=== PATIENT | male | born 1930 | race Hispanic/Latino ===

== ENCOUNTER 2016-10-06 13:58 | Emergency (ER) | payer MEDICARE ==
[2016-10-06] MEDS ORDERED: Naloxone HCl 0.4 mg/ml Vial ONE (14:21)
[2016-10-06 14:36] LABS: #Basophils 0.1 thou/uL (0.0-0.2); #Eosinphils 0.1 thou/uL (0.0-0.7); #Monocytes 0.4 thou/uL (0.11-0.59); #Neutrophils 6.2 thou/uL (1.40-6.50); %Eosinophils 1.8 % (0.0-10.0); %Monocytes 4.8 % (0.0-10.0); Hematocrit 45.9 % (42.0-52.0); Mean Platelet Volume 7.9 fL (7.4-10.4); Red Blood Cell (RBC) Count 5.04 mill/uL (4.70-6.10); White Blood Cell (WBC) Count 7.7 thou/uL (4.8-10.8)
[2016-10-06 14:47] LABS: ALT (SGPT) 20 U/L (0-55); AST (SGOT) 24 U/L (5-34); Alkaline Phosphatase 71 U/L (40-150); Anion Gap 14 mmol/L (10-20); BUN (Urea Nitrogen) 20 mg/dL (8.4-25.7); Bilirubin, Total 1.1 mg/dL (0.2-1.2); CK (CPK) 206 U/L (30-200); Calc. Creatinine Clearance 0 mL/min (70-130); Calcium 9.3 mg/dL (7.8-10.44); Carbon Dioxide 36 mmol/L (23-31); Chloride 96 mmol/L (98-107); Estimated GFR-MDRD 65; Globulin 3.5 g/dL (2.4-3.5); Lipase 9 U/L (8-78); Protein, Total 7.8 g/dL (5.8-8.1); Troponin I 0.027 ng/mL (< 0.028)
[2016-10-06 14:48] LABS: Acetaminophen Less than 3.0 mcg/mL (10.0-30.0); Salicylate Less than 5.0 mg/dL (15.0-30.0)
[2016-10-06 14:50] LABS: Bilirubin Negative (Negative); Blood, Urine Negative (Negative); Glucose, Urine (Dipstick) Negative (Negative); Ketone, Urine Negative (Negative); Nitrite Negative (Negative); Protein, Urine (Dipstick) 30 mg/dL (Neg-Trace)
[2016-10-06 14:58] LABS: Bacteria/HPF Rare-Few HPF (None Seen); RBC/HPF 0-3 HPF (0-3); Squamous Epithelial 0-3 HPF (0-3); Transitional Epithelial 0-3 HPF (0-3); WBC/HPF None Seen HPF (0-3)
[2016-10-06 14:59] LABS: Methadone Not Detected (NotDetected); Methamphetamine Not Detected (NotDetected)
--- NOTE | 2016-10-06 16:22 | ERRECORD ---
[facility] EMERGENCY RECORD HPI MENTAL STATUS CHANGES CHIEF COMPLAINT: Patient presents for evaluation of mental status changes. (15:15 MBRI) HISTORIAN: History provided by patient's family, Son states that he awoke this am at around 0430 and was normal. He got dressed and went to the kitchen. Some time later he fell asleep on the couch and remained asleep until they woke him at around 1300. He was lethargic and with slurred speech and weak at that time. They noted that there were some meds on the kitchen table that had apparently been moved by him in the am. His son normally gives him his meds. And upon counting the pills there were 6 Zyprexa and 2 Zoloft missing from the bottles. They are suspicious that he may have taken these pills. (15:15 MBRI) LOCATION: Symptoms are generalized. (15:15 MBRI) QUALITY: Patient is, oriented to person, responsive to verbal stimuli, Ama coma score, Eye opening: (3) To speech, Verbal: (2) - Incomprehensible sounds, Motor: (6) - Obeys commands/Spontaneous, GCS Total: 11. (15:15 MBRI) SEVERITY: Maximum severity of symptoms severe, Currently symptoms are severe. (15:15 MBRI) TIME COURSE: Gradual onset of symptoms, 6, hours prior to arrival, There has been no change in the patient's symptoms over time. (15:15 MBRI) ASSOCIATED WITH: Associated symptoms reviewed, No associated chest pain, No associated decrease in oral intake, No associated drug use, No associated fever, No associated hyperglycemia, No associated hypoglycemia, Associated with medication use, No associated nausea, Associated with overdose, No associated seizures, No associated syncope, No associated trauma, No associated vomiting. (15:15 MBRI) EXACERBATED BY: Patient's condition exacerbated by nothing. (15:15 MBRI) RELIEVED BY: Patient's condition relieved by nothing. (15:15 MBRI) RISK FACTORS: CVA/TIA risk factors, Hypertension, Smoking, Prior CVA / TIA. (15:15 MBRI) E/M CAVEAT: Emergency room caveat invoked due to patient with mental status changes. (15:17 MBRI) ROS (15:20 MBRI) CONSTITUTIONAL: Historian denies chills, denies fever, reports lethargy, reports weakness. CARDIOVASCULAR: Historian denies chest pain, reports edema, denies orthopnea, denies paroxysmal nocturnal dyspnea, denies syncope. RESPIRATORY: Historian denies shortness of breath, denies stridor, denies wheezing. GI: Historian denies diarrhea, denies nausea, denies vomiting. GENITOURINARY MALE: Historian denies dysuria, denies hematuria, denies incontinence, denies urinary frequency, denies urine output changes, denies urinary retention. MUSCULOSKELETAL: Historian denies fall, denies injury. &a-1R&a+25V*p+0X*u3028C*c202B*c15G*c2P*p-0X&a-25V&a+1R Name: Tio Mensah : 1930 M85 MedRec: [id number] AcctNum: [id number] Prepared: SunOct 06, 2016 16:21 by Interface Page 1 of 5 pMD [facility] EMERGENCY RECORD SKIN: Historian denies cellulitis, denies induration, denies rash. NEUROLOGIC: Historian reports confusion, reports gait changes, reports lethargy, reports mental status changes, denies seizures, denies tremors, denies vertigo. HEMO/LYMPHATIC: Historian denies abnormal blood clotting. PSYCHIATRIC: Historian denies alcohol abuse, denies drug abuse, denies suicidal ideation. PAST MEDICAL HISTORY (14:11 ERUI) MEDICAL HISTORY: Notes: PT TAKES LASIX FOR RETAINING FLUIDS TO LOWER EXTREMITY. HX OF GALL STONES, Past medical history includes history of hypertension, Past medical history includes pulmonary disease, chronic obstructive pulmonary disease. Past medical history includes history of hypertension, Past medical history includes pulmonary disease, chronic obstructive pulmonary disease.10/06/16. MALE SURGICAL HISTORY: Patient has no surgical history. Patient has no surgical history. 10/06/16. PSYCHIATRIC HISTORY: No previous psychiatric history. SOCIAL HISTORY: Patient drinks socially, rarely, Patient is a former tobacco user, Patient quit smoking less than 10 years ago, Tobacco history notes: smoked 70 years. Patient drinks socially, rarely, Patient denies drug use, Patient is a former tobacco user, smoked cigarettes, Patient quit smoking less than 10 years ago.10/06/16. KNOWN ALLERGIES Penicillins: Source: Family CURRENT MEDICATIONS predniSONE: TABLET : Strength - 10 mg : ORAL Patient Dose: 1 tab(s) once a day. (14:06 ERUI) amLODIPine: TABLET : Strength - 5 mg : ORAL Patient Dose: 1 tab(s) Oral once a day. (14:07 ERUI) furosemide: TABLET : Strength - 40 mg : ORAL Patient Dose: 1 tab(s) Oral. (14:08 ERUI) atorvastatin: TABLET : Strength - 40 mg : ORAL Patient Dose: 1 tab(s) Oral once a day. (14:09 ERUI) albuterol: AEROSOL (GRAM) : Strength - 90 mcg : INHALATION Patient Dose: .083 mcg Nebulize 2 times a day. (14:10 ERUI) VITAL SIGNS VITAL SIGNS: BP: 139/79, Pulse: 70, Resp: 20, O2 sat: 100 on Room Air, Time: 10/06/2016 14:12. (14:12 ERUI) &a-1R&a+25V*p+0X*m8363F*c202B*c15G*c2P*p-0X&a-25V&a+1R Name: Tio Mensah : 1930 M85 MedRec: [id number] AcctNum: [id number] Prepared: SunOct 06, 2016 16:21 by Interface Page 2 of 5 pMD [facility] EMERGENCY RECORD BP: 164/66, Pulse: 59, Resp: 20, Pain: 0, O2 sat: 100 on Room Air, Time: 10/06/2016 14:42. (14:42 ERUI) Temp: 98.2 (Oral), Time: 10/06/2016 14:40. (14:40 LGIB) BP: 155/63, Pulse: 59, Resp: 20, Pain: 0, O2 sat: 99 on Room Air, Time: 10/06/2016 15:00. (15:00 ERUI) BP: 135/63, Pulse: 55, Resp: 20, Pain: 0, O2 sat: 99 on Room Air, Time: 10/06/2016 15:16. (15:16 ERUI) BP: 120/88, Pulse: 57, Resp: 20, Pain: 0, O2 sat: 99 on Room Air, Time: 10/06/2016 15:45. (15:45 ERUI) PHYSICAL EXAM (15:22 MBRI) CONSTITUTIONAL: Vital Signs Reviewed, Patient afebrile, Pulse, bradycardic, Blood pressure normal, Respiratory rate normal, Normal pulse oximetry, Patient appears pain free, Patient, lethargic, oriented to person, responsive to verbal stimuli, Nursing notes reviewed. HEAD: Head exam included findings of head atraumatic, normocephalic. EYES: Eye exam included findings of eyelids normal to inspection, Pupils equally round and reactive to light, Extraocular muscles not intact, unable to complete complete exam due to AMS., Conjunctiva normal, Sclera normal. ENT: Ear exam normal, Nose exam normal, Pharynx exam normal, Uvula exam normal, Mouth exam included findings of, mucous membranes tacky, no lesions, no lacerations, Tongue not elevated. NECK: Neck exam included findings of normal range of motion, Trachea midline, Atraumatic, no carotid bruits, no meningeal signs, no cervical adenopathy, no tenderness. RESPIRATORY CHEST: Respiratory exam included findings of no respiratory distress, Breath sounds clear, No wheezing, No rales, No rhonchi, Breath sounds not diminished, no tenderness. CARDIOVASCULAR: Cardiovascular exam included findings of, rate bradycardic, rhythm regular, Heart sounds normal, normal S1, normal S2, no murmurs, Carotids normal, Abdominal aorta normal, Pedal pulses normal, no pain above the umbilicus. ABDOMEN MALE: Abdominal exam included findings of abdomen nontender, no distension, no mass, no pulsatile masses, no peritoneal signs. GENITOURINARY MALE: Genitourinary exam included findings of penis normal, Testicles normal. BACK: Back exam included findings of normal inspection, no tenderness. UPPER EXTREMITY: Upper extremity exam included findings of inspection normal, Range of motion normal, Motor strength, 3/5 on the left, 3/5 on the right, Radial pulse normal, no cyanosis, no clubbing, no edema. LOWER EXTREMITY: Lower extremity exam included findings of inspection normal, Range of motion normal, Motor strength, &a-1R&a+25V*p+0X*b6344P*c202B*c15G*c2P*p-0X&a-25V&a+1R Name: Tio Mensah : 1930 M85 MedRec: [id number] AcctNum: [id number] Prepared: SunOct 06, 2016 16:21 by Interface Page 3 of 5 pMD [facility] EMERGENCY RECORD 3/5 on the left, 3/5 on the right, Sensation intact, Pedal pulse normal, no cyanosis, no clubbing, Edema present, to bilateral lower extremities, pitting, +2, no calf tenderness. NEURO: Neuro exam findings include patient oriented to, Speech, garbled, Gait abnormal, unable to ambulate, [place]is coma scale, Cranial nerves intact, Deep tendon reflexes normal, no focal sensory deficits, no nystagmus, no clonus, no asterixis. SKIN: Skin exam normal. EKG INTERPRETATION (14:50 MBRI) 12 LEAD EKG INTERPRETATION: 12 lead EKG interpreted by Emergency Department Physician at time of study, 12 lead EKG shows, sinus bradycardia, Rate (beats per minute): 56, with no ectopics, Conduction normal, ST segments normal, T waves normal, [place] normal. RADIOLOGYINTERPRETATION (15:03 MBRI) HEAD: Head CT negative, without contrast, no bleed, no mass, no acute changes. WHIZZER OPERATOR: Preliminary review of x-rays by, ED Physician, Preliminary review of CT scans by, Radiologist. MEDICATION ADMINISTRATION SUMMARY Drug Name: sodium chloride 0.9 % intravenous, Dose Ordered: 125 mL/hr, Route: IV Fluid Infusion, Status: Given, Time: 15:37 10/06/2016, Drug Name: sodium chloride 0.9 % intravenous, Dose Ordered: 250 mL, Route: IV Fluid Infusion, Status: Given, Time: 14:55 10/06/2016, Drug Name: nalOXone, Dose Ordered: 0.4 mg, Route: IV Push, Status: Given, Time: 14:22 10/06/2016, Detailed record available in Medication Service section. DOCTOR NOTES RE-EVALUATION: Routine re-evaluation, after administration of, narcan, The patient's condition is unchanged, No sig change in the pts mentation to med. Low suspicion to narcotic type OD. Also no meds in the house of a pain treatment type nature. (14:39 MBRI) TEXT: Pt with ams possibly due to medication ingestion of zyprexa and Zoloft. However, this was unwitnessed. Pt present with some somnolence and slurred speech at this time. He is able to follow some commands and responds to verbal and phys stimulation. CT shows no acute process but prior occipital infarct was noted. Pt response may be related to his zyprexa ingestion as the Zoloft has a wide range of safety and taking 2 pills would likely not cause any sig issues. Some of his findings or dehydration due to meds may be playing a role in his dry tacky saliva but this can also occur with neuroleptics given the anticholinegic response. No indications for NMS at this time without rigidity or fever. At this time my diff &a-1R&a+25V*p+0X*m6271J*c202B*c15G*c2P*p-0X&a-25V&a+1R Name: Tio Mensah : 1930 M85 MedRec: [id number] AcctNum: [id number] Prepared: SunOct 06, 2016 16:21 by Interface Page 4 of 5 pMD [facility] EMERGENCY RECORD would have to include CVA as possible cause. Due to this I rec sending to [facility] at the [facility] for further care and eval as specialty care may be necessary in the work-up. I have discussed this with DR Gay who accepts for care. Pt stable at this time for ground EMS. Plan discussed with family. (15:03 MBRI) PATIENT STATUS: Patient has stabilized since arrival to emergency department. 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 PRESCRIPTION No recorded prescriptions DISPOSITION PATIENT: Disposition Type: Transfer, Disposition: Transfer to [facility], Condition: Guarded. (15:12 MBRI) Patient left the department. (16:16 LGIB) Ferrell: ERUI=[facility], [place] LGIB=LEOBARDO Alexander Lauren MBRI=DO Hawkins Matthew &a-1R&a+25V*p+0X*f9446Q*c202B*c15G*c2P*p-0X&a-25V&a+1R Name: Tio Mensah : 1930 M85 MedRec: [id number] AcctNum: [id number] Prepared: SunOct 06, 2016 16:21 by Interface Page 5 of 5 pMD MTDD
--- NOTE | 2016-10-06 16:29 | PICIS ---
[facility] EMERGENCY RECORD TRIAGE (SunOct 06, 2016 14:04 ERUI) TRIAGE NOTES: per patients son, pt possibly took six zyprexa and 2 zolft. this between 4 and 6 am. pt has increase drowsy, and slurred speech per son. (SunOct 06, 2016 14:04 ERUI) PATIENT: NAME: Tio Mensah, AGE: 85, GENDER: male, : Sun 1930, TIME OF GREET: SunOct 06, 2016 13:59, PREFERRED LANGUAGE: Egyptian, ETHNICITY: or , ECODE BILLING MAP: [facility], SSN: [id number], Zip Code: [address], KG WEIGHT: 75.75, PHONE: , , , PERSON ID: [id number], PAYMENT: [place] [employer], PCP: sherri. (SunOct 06, 2016 14:04 ERUI) COMPLAINT: possible accidental overdose. (SunOct 06, 2016 14:04 ERUI) ADMISSION: URGENCY: 2 Emergent, ADMISSION SOURCE: Home, TRANSPORT: CAR, BED: TRIAGE. (SunOct 06, 2016 14:04 ERUI) ASSESSMENT: Assessment: PT BROUGHT IN VIA, WC, DROWSY, ATTEMPTS TO SPEAK, SLURRED, UNCOMPRHENSIBLE, SON AT BEDSIDE, PER SON PT WAS UA AT 430, ATE A DONUT, PATIENT WENT TO THE COUCH, AND TOOK A 5 HR NAP, WHEN GRANDAUGHTER WOKE PT UP AT 1330, PT DROWSY, THIGHT TONGUE AND SLURRED SPEECH. LAST SEEN NORMAL AT 2130. PER DAUGHTER , PT WAS UP AT 430, LOOKING AT A PICTURE, NONVERBAL., Symptoms began 430AM. (15:19 ERUI) IMMUNIZATIONS: Flu vaccine up to date, Tetanus immunization up to date, Pneumococcal vaccine up to date. (14:11 ERUI) SIRS SCORING: Heart Rate 55-109 (0), Temp range 96.8-101.1 (0), respiratory rate 12-24 (0), Mental status altered: yes (1). (14:11 ERUI) TRIAGE SCREENING: Patient denies suicidal ideation, Patient denies presence of domestic violence. (14:11 ERUI) TREATMENTS IN PROGRESS: Treatments given Prehospital: none. (14:11 ERUI) PROVIDERS: TRIAGE NURSE: Queenie St RN. (SunOct 06, 2016 14:04 ERUI) PREVIOUS VISIT ALLERGIES: Penicillins. (SunOct 06, 2016 14:04 ERUI) Penicillins. (14:11 ERUI) KNOWN ALLERGIES Penicillins: Source: Family CURRENT MEDICATIONS predniSONE: TABLET : Strength - 10 mg : ORAL Patient Dose: 1 tab(s) once a day. (14:06 ERUI) amLODIPine: TABLET : Strength - 5 mg : ORAL Patient Dose: 1 tab(s) Oral once a day. (14:07 ERUI) furosemide: TABLET : Strength - 40 mg : ORAL Patient Dose: 1 tab(s) Oral. (14:08 ERUI) &a-1R&a+25V*p+0X*l0315A*c202B*c15G*c2P*p-0X&a-25V&a+1R Name: Tio Mensah : 1930 M85 MedRec: [id number] AcctNum: [id number] Prepared: SunOct 06, 2016 16:27 by Interface Page 1 of 18 pMD [facility] EMERGENCY RECORD atorvastatin: TABLET : Strength - 40 mg : ORAL Patient Dose: 1 tab(s) Oral once a day. (14:09 ERUI) albuterol: AEROSOL (GRAM) : Strength - 90 mcg : INHALATION Patient Dose: .083 mcg Nebulize 2 times a day. (14:10 ERUI) VITAL SIGNS VITAL SIGNS: BP: 139/79, Pulse: 70, Resp: 20, O2 sat: 100 on Room Air, Time: 10/06/2016 14:12. (14:12 ERUI) BP: 164/66, Pulse: 59, Resp: 20, Pain: 0, O2 sat: 100 on Room Air, Time: 10/06/2016 14:42. (14:42 ERUI) Temp: 98.2 (Oral), Time: 10/06/2016 14:40. (14:40 LGIB) BP: 155/63, Pulse: 59, Resp: 20, Pain: 0, O2 sat: 99 on Room Air, Time: 10/06/2016 15:00. (15:00 ERUI) BP: 135/63, Pulse: 55, Resp: 20, Pain: 0, O2 sat: 99 on Room Air, Time: 10/06/2016 15:16. (15:16 ERUI) BP: 120/88, Pulse: 57, Resp: 20, Pain: 0, O2 sat: 99 on Room Air, Time: 10/06/2016 15:45. (15:45 ERUI) NURSING ASSESSMENT: DYSPHAGIA SCREENING (16:15 ERUI) SWALLOWING EVALUATION: Positive for decrease level of alertness, Patient not cleared for swallowing evaluation; positive responses, Swallowing evaluation approved by Dr. DR HAWKINS, Following administration of 3 ounces of water by a cup, patient failed swallowing evaluation by exhibiting the following signs or symptoms of aspiration:. NURSING ASSESSMENT: FALL RISK (14:45 ERUI) FALL RISK: Use of level of consciousness altering agents with mentation or cognitive changes (3), Impaired mobility (3), Confusion (3), Total score 9, Fall risk. HENDRICH II FALL RISK: Hendrich II Fall Risk assessment findings include patient confused, disoriented or impulsive(4), altered elimination(1), male(1), Total score 6, Notes: SIDE RAILS UP AND SON AT BEDSIDE, VIEW FROM NS STATION, Score greater than 5. Patient is at high risk for fall. Fall risk precautions initiated. NURSING ASSESSMENT: FOCUSED (14:47 ERUI) CONSTITUTIONAL: Patient arrives, via hospital wheelchair, Unsteady gait, Assistance to cart, History obtained from, family member: FREEMAN, PATIENTS SON, Patient appears comfortable, Patient cooperative, Patient, DROWSY, Patient is, NO VERBAL, PT ATTEMPTS TO SPEAK, SLURRED, UNCOMPREHENSIBLE, Skin warm, Skin dry, Skin normal in color, Mucous membranes pink, Mucous membranes moist, Patient is well-groomed, Patient complains of ALERTED MENTAL STATUS, PER SON, PATIENT POSSIBLE ACCIDENTLY TOOK 2 OF ZOLFT AND 6 ZYPREXA. &a-1R&a+25V*p+0X*z5540B*c202B*c15G*c2P*p-0X&a-25V&a+1R Name: Tio Mensah : 1930 M85 MedRec: [id number] AcctNum: [id number] Prepared: SunOct 06, 2016 16:27 by Interface Page 2 of 18 pMD [facility] EMERGENCY RECORD PAIN: Patient is unable to relate pain to scale. EYES: Focused eye assessment finding include pupils equally round and reactive to light, Left pupil 4 mm in size, Right pupil 4 mm in size. NEURO: Focused neuro assessment findings include patient responsive to verbal stimuli, cooperative, No facial droop noted, Speech incoherent, No loss of consciousness. GCS: Eye opening: (3) To speech, Verbal: (2) - Incomprehensible sounds, Motor: (6) - Obeys commands/Spontaneous, GCS Total: 11. RESPIRATORY: Focused respiratory assessment findings include breath sounds not clear, to bilateral lower lobes, Breath sounds with rhonchi. ABDOMEN: Focused abdominal assessment findings include abdomen soft, no constipation, no diarrhea, no complaint of nausea, no vomiting, Bowel sounds present. GENITOURINARY: Focused genitourinary assessment not applicable. SAFETY: Side rails up, Cart/Stretcher in lowest position, Family at bedside, Call light within reach, Hospital ID band on, Patient in view of the nursing station. NURSING ASSESSMENT: NEURO GCS: (6) Obeying command:, (2) Incomprehensible speech:, (1) No eye opening:, Result: 9. (16:06 ERUI) NIHSS: CVA assessment findings: Level of consciousness : not alert, but arousable by minor stimulation (1), Questions: answers neither question correctly (2), Commands: performs both tasks correctly (0), Best gaze: forced deviation or total gaze paresis (2), Visual: complete hemianopia (2), Facial palsy: normal symmetrical movement (0), Motor Left Arm: no drift, arm stays 90/45 degrees for full 10 seconds (0), Motor Right Arm: no drift, arm stays 90/45 degrees for full 10 seconds (0), Motor left leg: drift, leg drifts down but does not hit bed or other support (1), Motor right leg: drift, leg drifts down but does not hit bed or other support (1), Limb ataxia: present in two limbs (2), Sensory: normal, no sensory loss (0), Best language: severe aphasia: all communication is through fragmentary expression: great need for inference, questioning, and guessing by the listener. Range of information that can be exchanged is limited: listener carries burden of communication. Examiner cannot identify materials provided from patient's response (2), Dysarthria: severe: patient's speech is so slurred as to be unintelligible in the absence of or out of proportion to any dysphasia, or is mute/anarthric (2), Extinction and Inattention: visual, tactile, auditory, spatial or personal inattention or extinction to bilateral simultaneous simulation in one of the sensory modalities (1), Total score 16. (15:03 ERUI) CVA assessment findings: Level of consciousness: alert, keenly responsive (0), Questions: answers neither question correctly (2), &a-1R&a+25V*p+0X*g2933I*c202B*c15G*c2P*p-0X&a-25V&a+1R Name: Tio Mensah : 1930 M85 MedRec: [id number] AcctNum: [id number] Prepared: SunOct 06, 2016 16:27 by Interface Page 3 of 18 pMD [facility] EMERGENCY RECORD Commands: performs both tasks correctly (0), Best gaze: forced deviation or total gaze paresis (2), Visual: partial hemianopia (1), Facial palsy: normal symmetrical movement (0), Motor Left Arm: no drift, arm stays 90/45 degrees for full 10 seconds (0), Motor Right Arm: no drift, arm stays 90/45 degrees for full 10 seconds (0), Motor left leg: some effort against gravity, drifts down to bed or support (2), Motor right leg: some effort against gravity, drifts down to bed or support (2), Limb ataxia: present in one limb (1), Sensory: normal, no sensory loss (0), Best language: severe aphasia: all communication is through fragmentary expression: great need for inference, questioning, and guessing by the listener. Range of information that can be exchanged is limited: listener carries burden of communication. Examiner cannot identify materials provided from patient's response (2), Dysarthria: severe: patient's speech is so slurred as to be unintelligible in the absence of or out of proportion to any dysphasia, or is mute/anarthric (2), Extinction and Inattention: visual, tactile, auditory, spatial or personal inattention or extinction to bilateral simultaneous simulation in one of the sensory modalities (1), Total score 15. (16:06 ERUI) PAIN: Patient rates pain as 0 out of 10. (16:06 ERUI) NEURO: Pupils equally round and reactive to light, Left pupil 4 mm in size, Right pupil 4 mm in size, Able to close eyes, Face symmetrical, Speech, incoherent, no facial droop, no facial numbness, no swelling, no paresthesias, Hand grasps equal, Upper extremity strength strong, Lower extremity strength strong, Foot press equal, no associated syncopal episode, no associated vomiting. (15:03 ERUI) Pupils equally round and reactive to light, Left pupil 3 mm in size, Right pupil 3 mm in size, Able to close eyes, Face symmetrical, Speech, garbled, no facial droop, no facial numbness, no swelling, no paresthesias, GCS:, Eye opening: (4) - Spontaneous, Verbal: (2) - Incomprehensible sounds, Motor: (6) - Obeys commands/Spontaneous, GCS Total: 12, Upper extremity strength strong, Lower extremity strength strong, Foot press equal, no associated vomiting, no associated weakness. (16:06 ERUI) ENT: Ear assessment findings include ear normal to inspection. (16:06 ERUI) SAFETY: Side rails up, Cart/Stretcher in lowest position, Family at bedside, Call light within reach, Hospital ID band on. (15:03 ERUI) Side rails up, Cart/Stretcher in lowest position, Family at bedside, Call light within reach, Hospital ID band on. (16:06 ERUI) NURSING ASSESSMENT: SKIN (14:45 ERUI) SKIN: Skin assessment findings include skin warm, Skin dry, Skin normal in color, Notes: NO SKIN BREAKDOWN. SAFETY: Side rails up, Cart/Stretcher in lowest position, Family &a-1R&a+25V*p+0X*y2489H*c202B*c15G*c2P*p-0X&a-25V&a+1R Name: Tio Mensah : 1930 M85 MedRec: [id number] AcctNum: [id number] Prepared: SunOct 06, 2016 16:27 by Interface Page 4 of 18 pMD [facility] EMERGENCY RECORD at bedside, Call light within reach, Hospital ID band on. NURSING PROCEDURE: BEDSIDE SIRS TESTING (16:05 ERUI) SCORES: Heart Rate 55-109 (0), Temp range 96.8-101.1 (0), respiratory rate 12-24 (0), Latest WBC 3-14.9 (0), Mental status altered: yes (1). NURSING PROCEDURE: BEDSIDE TESTING (14:05 ERUI) GLUCOSE: Glucose testing indicated for mental status changes, Capillary blood sample, Result (mg/dl) 108. SAFETY: Side rails up, Cart/Stretcher in lowest position, Family at bedside, Call light within reach, Hospital ID band on. NURSING PROCEDURE: RAILROAD OPERATOR (14:05 ERUI) PATIENT IDENTIFIER: Patient actively involved in identification process, Patient's identity verified by hospital ID bracelet, Patient's identity verified by family member. RAILROAD OPERATOR: Cardiac monitoring indicated for mental status changes, Patient placed on nuclear monitoring technician, Heart rate: 60, showing sinus bradycardia, Patient placed on non-invasive blood pressure monitor, with disposable blood pressure cuff applied, Patient placed on continuous pulse oximetry, Adult/pediatric oxisensor applied. NURSING PROCEDURE: EKG CHART (14:26 ERUI) PATIENT IDENTIFIER: Patient actively involved in identification process, Patient's identity verified by hospital ID bracelet, Patient's identity verified by family member. EKG: EKG indicated for AMS, 12 lead EKG performed on the left chest, done by PERLITA. FOLLOW-UP: After procedure, EKG for interpretation given to Dr. HAWKINS. SAFETY: Side rails up, Cart/Stretcher in lowest position, Family at bedside, Call light within reach, Hospital ID band on. NURSING PROCEDURE: IV (14:10 LGIB) IV SITE 1: IV therapy indicated for medication administration, IV established, to the right antecubital, using an 18 gauge catheter, in one attempt, Saline lock established, Flushed with normal saline (mls): 10, Labs drawn at time of placement, labeled in the presence of the patient and sent to lab, Blood cultures drawn at time of placement, labeled in the presence of the patient and sent to lab. NURSING PROCEDURE: NURSE NOTES NURSES NOTES: Notes: ems at bedside. (16:02 ERUI) Notes: pt transported to [facility]. (16:11 ERUI) Notes: REPORT TO YOVANI AT [facility]. (16:15 ERUI) NURSING PROCEDURE: TRANSPORT TO TESTS (14:44 ERUI) PATIENT IDENTIFIER: Patient actively involved in identification &a-1R&a+25V*p+0X*o0448J*c202B*c15G*c2P*p-0X&a-25V&a+1R Name: Tio Mensah : 1930 M85 MedRec: [id number] AcctNum: [id number] Prepared: SunOct 06, 2016 16:27 by Interface Page 5 of 18 pMD [facility] EMERGENCY RECORD process, Patient's identity verified by hospital ID bracelet, Patient's identity verified by family member. TRANSPORT TO TESTS: Patient transported to CT scan, via cart, Accompanied by x-ray vascular technician. NURSING PROCEDURE: URINE COLLECTION (14:10 LGIB) URINE COLLECTION MALE: Urine collected by straight cath, using a 14 fr catheter, in one attempt, output amount (mL) 180, urine yellow in color, and clear, Specimen collected, labeled in the presence of the patient and sent to lab, Specimen obtained for culture labeled in the presence of the patient and sent to lab. ORDER DETAILS Order Name: Accucheck, Status: Done, Time: 14:39 10/06/2016, User: MULU, - Ordered for: DO Hawkins Matthew, - Entered by: DO Hawkins Matthew - SunOct 06, 2016 14:19, - Quantity: 1, Order Name: RAILROAD OPERATOR ED, Status: Done, Time: 15:36 10/06/2016, User: LGIB, - Ordered for: DO Hawkins Matthew, - Entered by: DO Hawkins Matthew - SunOct 06, 2016 15:32, - Quantity: 1, Order Name: Cardiac Profile w/CKMB & Troponin - I, Status: Active, Time: 14:19 10/06/2016, User: MBRI, - Ordered for: DO Hawkins Matthew, - Entered by: DO Hawkins Matthew - SunOct 06, 2016 14:19, - Quantity: 1, Order Name: CATH STRAIGHT ED, Status: Done, Time: 14:31 10/06/2016, User: MULU, - Ordered for: DO Hawkins Matthew, - Entered by: DO Hawkins Matthew - SunOct 06, 2016 14:19, - Quantity: 1, Order Name: CBC with Differential, Status: Active, Time: 14:19 10/06/2016, User: EDINSON, - Ordered for: DO Hawkins Matthew, - Entered by: DO Hawkins Matthew - SunOct 06, 2016 14:19, - Quantity: 1, Order Name: CK (CPK), Status: Active, Time: 14:19 10/06/2016, User: EDINSON, - Ordered for: DO Hawkins Matthew, - Entered by: DO Hawkins Matthew - SunOct 06, 2016 14:19, - Quantity: 1, Order Name: Comprehensive Metabolic Panel, Status: Active, Time: 14:19 10/06/2016, User: EDINSON, - Ordered for: DO Hawkins Matthew, - Entered by: DO Hawkins Matthew - SunOct 06, 2016 14:19, - Quantity: 1, Order Name: CT Brain WO Con, Status: Active, Time: 14:19 10/06/2016, &a-1R&a+25V*p+0X*y0180K*c202B*c15G*c2P*p-0X&a-25V&a+1R Name: Tio Mensah : 1930 M85 MedRec: [id number] AcctNum: [id number] Prepared: SunOct 06, 2016 16:27 by Interface Page 6 of 18 pMD [facility] EMERGENCY RECORD User: EDINSON, - Ordered for: DO Hawkins Matthew, - Entered by: DO Hawkins Matthew - SunOct 06, 2016 14:19, - Quantity: 1, Order Name: Culture, Blood, Status: Active, Time: 14:19 10/06/2016, User: EDINSON, - Ordered for: DO Hawkins Matthew, - Entered by: DO Ross Andrea - SunOct 06, 2016 14:19, - Quantity: 1, Order Name: Culture, Urine, Status: Active, Time: 14:19 10/06/2016, User: MBRI, - Ordered for: [place], DO, Andrea, - Entered by: DO Ross Andrea - SunOct 06, 2016 14:19, - Quantity: 1, Order Name: Diet: Nothing by Mouth (NPO), Status: Done, Time: 14:30 10/06/2016, User: ERUI, - Ordered for: Ross, DO, Andrea, - Entered by: [place], DO Andrea - SunOct 06, 2016 14:19, - Quantity: 1, Order Name: Drug Screen, Serum, Status: Active, Time: 14:19 10/06/2016, User: MBRI, - Ordered for: [place], DO, Andrea, - Entered by: DO Ross Andrea - SunOct 06, 2016 14:19, - Quantity: 1, Order Name: Drug Screen, Urine, Status: Active, Time: 14:19 10/06/2016, User: MBRI, - Ordered for: Ross, DO, Andrea, - Entered by: DO Ross Andrea - SunOct 06, 2016 14:19, - Quantity: 1, Order Name: DYSPHAGIA SCREEN, Status: Done, Time: 16:05 10/06/2016, User: LGIB, - Ordered for: [place], DO, Andrea, - Entered by: DO Ross Andrea - SunOct 06, 2016 15:32, - Quantity: 1, Order Name: EKG 12 Lead in Emergency Room, Status: Active, Time: 14:19 10/06/2016, User: MBRI, - Ordered for: [place], DO, Andrea, - Entered by: DO Ross Andrea - SunOct 06, 2016 14:19, - Quantity: 1, Order Name: ERRT Pulse Oximeter ER, Status: Active, Time: 14:19 10/06/2016, User: MBRI, - Ordered for: [place], DO, Andrea, - Entered by: DO Ross Andrea - SunOct 06, 2016 14:19, - Quantity: 1, Order Name: HOB 30 DEGREES, Status: Done, Time: 15:36 10/06/2016, User: LGIB, - Ordered for: DO Hawkins Matthew, - Entered by: DO Hawkins Matthew - SunOct 06, 2016 15:32, - Quantity: 1, Order Name: Lipase, Status: Active, Time: 14:19 10/06/2016, User: MBRI, &a-1R&a+25V*p+0X*m0243E*c202B*c15G*c2P*p-0X&a-25V&a+1R Name: Tio Menash : 1930 M85 MedRec: [id number] AcctNum: [id number] Prepared: SunOct 06, 2016 16:27 by Interface Page 7 of 18 pMD [facility] EMERGENCY RECORD - Ordered for: DO Hawkins Matthew, - Entered by: DO Hawkins Matthew - SunOct 06, 2016 14:19, - Quantity: 1, Order Name: NIHSS, Status: Done, Time: 15:22 10/06/2016, User: LGIB, - Ordered for: DO Hawkins Matthew, - Entered by: DO Hawkins Matthew - SunOct 06, 2016 14:19, - Quantity: 1, Order Name: SALINE LOCK, Status: Done, Time: 14:30 10/06/2016, User: ERUI, - Ordered for: DO Hawkins Matthew, - Entered by: DO Hawkins Matthew - SunOct 06, 2016 14:19, - Quantity: 1, Order Name: Urinalysis w/ Rflx Microscopic, Status: Active, Time: 14:19 10/06/2016, User: MBRI, - Ordered for: DO Hawkins Matthew, - Entered by: DO Hawkins Matthew - SunOct 06, 2016 14:19, - Quantity: 1, Order Name: XR Chest 1 View Portable, Status: Active, Time: 14:19 10/06/2016, User: MBRI, - Ordered for: DO Hawkins Matthew, - Entered by: DO Hawkins Matthew - SunOct 06, 2016 14:19, - Quantity: 1. MEDICATION ADMINISTRATION SUMMARY Drug Name: sodium chloride 0.9 % intravenous, Dose Ordered: 125 mL/hr, Route: IV Fluid Infusion, Status: Given, Time: 15:37 10/06/2016, Drug Name: sodium chloride 0.9 % intravenous, Dose Ordered: 250 mL, Route: IV Fluid Infusion, Status: Given, Time: 14:55 10/06/2016, Drug Name: nalOXone, Dose Ordered: 0.4 mg, Route: IV Push, Status: Given, Time: 14:22 10/06/2016, Detailed record available in Medication Service section. MEDICATION SERVICE nalOXone: Order: nalOXone (naloxone HCl) - Dose: 0.4 mg : IV Push Schedule: Now Ordered by: Andrea Hawkins DO Entered by: Andrea Hawkins DO SunOct 06, 2016 14:20 Documented as given by: Katelyn Alexander RN SunOct 06, 2016 14:22 Patient, Medication, Dose, Route and Time verified prior to administration. IV SITE #1 IVP, initial medication, Catheter placement confirmed via flush prior to administration, IV site without signs or symptoms of infiltration during medication administration, No swelling during administration, No drainage during administration, IV flushed after administration, Correct patient, time, route, dose and medication confirmed prior to administration, Patient advised of actions and side-effects prior to administration, Allergies confirmed and medications reviewed prior to administration, Patient in position of &a-1R&a+25V*p+0X*t7478N*c202B*c15G*c2P*p-0X&a-25V&a+1R Name: Tio Mensah : 1930 M85 MedRec: [id number] AcctNum: [id number] Prepared: SunOct 06, 2016 16:27 by Interface Page 8 of 18 pMD [facility] EMERGENCY RECORD comfort, Side rails up, Cart in lowest position, Family at bedside. : Follow Up : Response assessment performed, No signs or symptoms of allergic reaction noted, No change in mental status, _IV SITE #1:_. (14:51 LGIB) sodium chloride 0.9 % intravenous: Order: sodium chloride 0.9 % intravenous (0.9 % sodium chloride) - Dose: 250 mL : IV Fluid Infusion Schedule: Bolus Ordered by: Andrea Hawkins DO Entered by: Andrea Hawkins DO SunOct 06, 2016 14:20 , Acknowledged by: Katelyn Alexander RN SunOct 06, 2016 14:42 Documented as given by: Katelyn Alexander RN SunOct 06, 2016 14:55 Patient, Medication, Dose, Route and Time verified prior to administration. IV SITE #1 IV fluids established for hydration, IV SITE #1 into right antecubital, IV SITE #1 1st bag hung, amount 250ml hung, via primary tubing, Catheter placement confirmed via flush prior to administration, IV site without signs or symptoms of infiltration during medication administration, No swelling during administration, No drainage during administration, IV flushed after administration, Correct patient, time, route, dose and medication confirmed prior to administration, Patient advised of actions and side-effects prior to administration, Allergies confirmed and medications reviewed prior to administration, Patient in position of comfort, Side rails up, Cart in lowest position, Family at bedside. : Follow Up : Response assessment performed, No signs or symptoms of allergic reaction noted, _IV SITE #1:_, IV fluid infusion discontinued, on SunOct 06, 2016 15:15, 20 minutes, ., Total amount infused: 250ml. (15:15 LGIB) sodium chloride 0.9 % intravenous: Order: sodium chloride 0.9 % intravenous (0.9 % sodium chloride) - Dose: 125 mL/hr : IV Fluid Infusion Schedule: Now Ordered by: Andrea Hawkins DO Entered by: Andrea Hawkins DO SunOct 06, 2016 15:30 , Acknowledged by: Queenie St RN SunOct 06, 2016 15:32 Documented as given by: Queenie St RN SunOct 06, 2016 15:37 Patient, Medication, Dose, Route and Time verified prior to administration. Amount given: 125ml/hr, IV SITE #1 IV fluids established for hydration, IV SITE #1 2nd bag hung, amount 1 Liter hung, via primary tubing, via pump tubing, Catheter placement confirmed via flush prior to administration, IV site without signs or symptoms of infiltration during medication administration, No swelling during administration, No drainage during administration, IV flushed after administration, Correct patient, time, route, dose and medication confirmed prior to administration, Patient advised of actions and side-effects prior to administration, Allergies confirmed and medications reviewed prior to administration, Patient in position of comfort, Side rails up, Cart in lowest position, Family at bedside. &a-1R&a+25V*p+0X*z3520J*c202B*c15G*c2P*p-0X&a-25V&a+1R Name: Tio Mensah : 1930 M85 MedRec: [id number] AcctNum: [id number] Prepared: SunOct 06, 2016 16:27 by Interface Page 9 of 18 pMD [facility] EMERGENCY RECORD : Follow Up : No signs or symptoms of allergic reaction noted, _IV SITE #1:_, Medication infusion continued upon transfer from emergency department, on SunOct 06, 2016 16:16, 40 minutes, ., Total amount infused: 100ML, Advised not to ambulate without assistance, Patient in position of comfort, Side rails up, Cart in lowest position, Family at bedside, Response assessment performed, . (16:19 ERUI) HPI MENTAL STATUS CHANGES CHIEF COMPLAINT: Patient presents for evaluation of mental status changes. (15:15 MBRI) HISTORIAN: History provided by patient's family, Son states that he awoke this am at around 0430 and was normal. He got dressed and went to the kitchen. Some time later he fell asleep on the couch and remained asleep until they woke him at around 1300. He was lethargic and with slurred speech and weak at that time. They noted that there were some meds on the kitchen table that had apparently been moved by him in the am. His son normally gives him his meds. And upon counting the pills there were 6 Zyprexa and 2 Zoloft missing from the bottles. They are suspicious that he may have taken these pills. (15:15 MBRI) LOCATION: Symptoms are generalized. (15:15 MBRI) QUALITY: Patient is, oriented to person, responsive to verbal stimuli, Ama coma score, Eye opening: (3) To speech, Verbal: (2) - Incomprehensible sounds, Motor: (6) - Obeys commands/Spontaneous, GCS Total: 11. (15:15 MBRI) SEVERITY: Maximum severity of symptoms severe, Currently symptoms are severe. (15:15 MBRI) TIME COURSE: Gradual onset of symptoms, 6, hours prior to arrival, There has been no change in the patient's symptoms over time. (15:15 MBRI) ASSOCIATED WITH: Associated symptoms reviewed, No associated chest pain, No associated decrease in oral intake, No associated drug use, No associated fever, No associated hyperglycemia, No associated hypoglycemia, Associated with medication use, No associated nausea, Associated with overdose, No associated seizures, No associated syncope, No associated trauma, No associated vomiting. (15:15 MBRI) EXACERBATED BY: Patient's condition exacerbated by nothing. (15:15 MBRI) RELIEVED BY: Patient's condition relieved by nothing. (15:15 MBRI) RISK FACTORS: CVA/TIA risk factors, Hypertension, Smoking, Prior CVA / TIA. (15:15 MBRI) E/M CAVEAT: Emergency room caveat invoked due to patient with mental status changes. (15:17 MBRI) ROS (15:20 MBRI) CONSTITUTIONAL: Historian denies chills, denies fever, reports lethargy, reports weakness. CARDIOVASCULAR: Historian denies chest pain, reports edema, denies orthopnea, denies paroxysmal nocturnal dyspnea, &a-1R&a+25V*p+0X*t2054G*c202B*c15G*c2P*p-0X&a-25V&a+1R Name: Tio Mensah : 1930 M85 MedRec: [id number] AcctNum: [id number] Prepared: SunOct 06, 2016 16:27 by Interface Page 10 of 18 pMD [facility] EMERGENCY RECORD denies syncope. RESPIRATORY: Historian denies shortness of breath, denies stridor, denies wheezing. GI: Historian denies diarrhea, denies nausea, denies vomiting. GENITOURINARY MALE: Historian denies dysuria, denies hematuria, denies incontinence, denies urinary frequency, denies urine output changes, denies urinary retention. MUSCULOSKELETAL: Historian denies fall, denies injury. SKIN: Historian denies cellulitis, denies induration, denies rash. NEUROLOGIC: Historian reports confusion, reports gait changes, reports lethargy, reports mental status changes, denies seizures, denies tremors, denies vertigo. HEMO/LYMPHATIC: Historian denies abnormal blood clotting. PSYCHIATRIC: Historian denies alcohol abuse, denies drug abuse, denies suicidal ideation. PAST MEDICAL HISTORY (14:11 ERUI) MEDICAL HISTORY: Notes: PT TAKES LASIX FOR RETAINING FLUIDS TO LOWER EXTREMITY. HX OF GALL STONES, Past medical history includes history of hypertension, Past medical history includes pulmonary disease, chronic obstructive pulmonary disease. Past medical history includes history of hypertension, Past medical history includes pulmonary disease, chronic obstructive pulmonary disease.10/06/16. MALE SURGICAL HISTORY: Patient has no surgical history. Patient has no surgical history. 10/06/16. PSYCHIATRIC HISTORY: No previous psychiatric history. SOCIAL HISTORY: Patient drinks socially, rarely, Patient is a former tobacco user, Patient quit smoking less than 10 years ago, Tobacco history notes: smoked 70 years. Patient drinks socially, rarely, Patient denies drug use, Patient is a former tobacco user, smoked cigarettes, Patient quit smoking less than 10 years ago.10/06/16. PHYSICAL EXAM (15:22 MBRI) CONSTITUTIONAL: Vital Signs Reviewed, Patient afebrile, Pulse, bradycardic, Blood pressure normal, Respiratory rate normal, Normal pulse oximetry, Patient appears pain free, Patient, lethargic, oriented to person, responsive to verbal stimuli, Nursing notes reviewed. HEAD: Head exam included findings of head atraumatic, normocephalic. EYES: Eye exam included findings of eyelids normal to inspection, Pupils equally round and reactive to light, Extraocular muscles not intact, unable to complete complete exam due to AMS., Conjunctiva normal, Sclera normal. ENT: Ear exam normal, Nose exam normal, Pharynx exam normal, Uvula exam normal, Mouth exam included findings of, mucous &a-1R&a+25V*p+0X*f9362D*c202B*c15G*c2P*p-0X&a-25V&a+1R Name: Tio Mensah : 1930 M85 MedRec: [id number] AcctNum: [id number] Prepared: SunOct 06, 2016 16:27 by Interface Page 11 of 18 pMD [facility] EMERGENCY RECORD membranes tacky, no lesions, no lacerations, Tongue not elevated. NECK: Neck exam included findings of normal range of motion, Trachea midline, Atraumatic, no carotid bruits, no meningeal signs, no cervical adenopathy, no tenderness. RESPIRATORY CHEST: Respiratory exam included findings of no respiratory distress, Breath sounds clear, No wheezing, No rales, No rhonchi, Breath sounds not diminished, no tenderness. CARDIOVASCULAR: Cardiovascular exam included findings of, rate bradycardic, rhythm regular, Heart sounds normal, normal S1, normal S2, no murmurs, Carotids normal, Abdominal aorta normal, Pedal pulses normal, no pain above the umbilicus. ABDOMEN MALE: Abdominal exam included findings of abdomen nontender, no distension, no mass, no pulsatile masses, no peritoneal signs. GENITOURINARY MALE: Genitourinary exam included findings of penis normal, Testicles normal. BACK: Back exam included findings of normal inspection, no tenderness. UPPER EXTREMITY: Upper extremity exam included findings of inspection normal, Range of motion normal, Motor strength, 3/5 on the left, 3/5 on the right, Radial pulse normal, no cyanosis, no clubbing, no edema. LOWER EXTREMITY: Lower extremity exam included findings of inspection normal, Range of motion normal, Motor strength, 3/5 on the left, 3/5 on the right, Sensation intact, Pedal pulse normal, no cyanosis, no clubbing, Edema present, to bilateral lower extremities, pitting, +2, no calf tenderness. NEURO: Neuro exam findings include patient oriented to, Speech, garbled, Gait abnormal, unable to ambulate, Ama coma scale, Cranial nerves intact, Deep tendon reflexes normal, no focal sensory deficits, no nystagmus, no clonus, no asterixis. SKIN: Skin exam normal. LAB INTERPRETATION (15:03 MBRI) INTERPRETATION: I reviewed the lab results. EVENTS TRANSFER: Triage to Emergency Triage. (SunOct 06, 2016 14:04 ERUI) Emergency Triage to Emergency Room -04. (14:10 ERUI) Removed from Emergency Emergency Room -04. (16:16 LGIB) RADIOLOGYINTERPRETATION (15:03 MBRI) HEAD: Head CT negative, without contrast, no bleed, no mass, no acute changes. CONFIDENTIAL INVESTIGATOR: Preliminary review of x-rays by, ED Physician, Preliminary review of CT scans by, Radiologist. &a-1R&a+25V*p+0X*i5242N*c202B*c15G*c2P*p-0X&a-25V&a+1R Name: Tio Mensah : 1930 M85 MedRec: [id number] AcctNum: [id number] Prepared: SunOct 06, 2016 16:27 by Interface Page 12 of 18 pMD [facility] EMERGENCY RECORD EKG INTERPRETATION (14:50 MBRI) 12 LEAD EKG INTERPRETATION: 12 lead EKG interpreted by Emergency Department Physician at time of study, 12 lead EKG shows, sinus bradycardia, Rate (beats per minute): 56, with no ectopics, Conduction normal, ST segments normal, T waves normal, [place] normal. O2SAT INTERPRETATION (14:49 MBRI) O2SAT: Oxygen saturation interpretation: Normal, Intervention required: patient observed. DOCTOR NOTES RE-EVALUATION: Routine re-evaluation, after administration of, narcan, The patient's condition is unchanged, No sig change in the pts mentation to med. Low suspicion to narcotic type OD. Also no meds in the house of a pain treatment type nature. (14:39 MBRI) TEXT: Pt with ams possibly due to medication ingestion of zyprexa and Zoloft. However, this was unwitnessed. Pt present with some somnolence and slurred speech at this time. He is able to follow some commands and responds to verbal and phys stimulation. CT shows no acute process but prior occipital infarct was noted. Pt response may be related to his zyprexa ingestion as the Zoloft has a wide range of safety and taking 2 pills would likely not cause any sig issues. Some of his findings or dehydration due to meds may be playing a role in his dry tacky saliva but this can also occur with neuroleptics given the anticholinegic response. No indications for NMS at this time without rigidity or fever. At this time my diff would have to include CVA as possible cause. Due to this I rec sending to [facility] at the [facility] for further care and eval as specialty care may be necessary in the work-up. I have discussed this with DR Gay who accepts for care. Pt stable at this time for ground EMS. Plan discussed with family. (15:03 MBRI) PATIENT STATUS: Patient has stabilized since arrival to emergency department. (15:03 MBRI) CVA ASSESSMENT (15:13 MBRI) NIHSS: CVA assessment findings: Level of consciousness: not alert, requires repeated stimulation to attend (2), Questions: answers neither question correctly (2), Commands: performs one task correctly(1), Best gaze: forced deviation or total gaze paresis (2), Visual: no visual loss (0), Facial palsy: normal symmetrical movement (0), Motor Left Arm: no drift, arm stays 90/45 degrees for full 10 seconds (0), Motor Right Arm: no drift, arm stays 90/45 degrees for full 10 seconds (0), Motor left leg: drift, leg drifts down but does not hit bed or other support (1), Motor right leg: drift, leg drifts down but does not hit bed or other support (1), Limb ataxia: present in two limbs (2), Sensory: normal, no sensory loss (0), Best language: severe aphasia: all communication is through &a-1R&a+25V*p+0X*k0216V*c202B*c15G*c2P*p-0X&a-25V&a+1R Name: Tio Mensah : 1930 M85 MedRec: [id number] AcctNum: [id number] Prepared: SunOct 06, 2016 16:27 by Interface Page 13 of 18 pMD [facility] EMERGENCY RECORD fragmentary expression: great need for inference, questioning, and guessing by the listener. Range of information that can be exchanged is limited: listener carries burden of communication. Examiner cannot identify materials provided from patient's response (2), Dysarthria: severe: patient's speech is so slurred as to be unintelligible in the absence of or out of proportion to any dysphasia, or is mute/anarthric (2), Extinction and Inattention: visual, tactile, auditory, spatial or personal inattention or extinction to bilateral simultaneous simulation in one of the sensory modalities (1), Total score 16. ACUTE STROKE PROTOCOL: Onset of symptoms Greater than three hours:, NIHSS stroke scale completed, Inclusion criteria: Patient's age 18 years or older, No clinical diagnosis of ischemic stroke with a measurable neurologic deficit, Time of symptom onset (when patient was last seen normal) Not well established as less than 180 minutes (3hours) before treatment would begin, Onset time greater than or equal to 3 hours, After procedure, tPA not warranted. PROBLEM LIST No recorded problems DIAGNOSIS (15:12 MBRI) FINAL: PRIMARY: ALTERED MENTAL STATUS UNSPECIFIED, ADDITIONAL: DEHYDRATION, Possible CVA - with evidence for old occipital infarct, possible drug overdose - accidental on Zoloft and Zyprexa. DISPOSITION PATIENT: Disposition Type: Transfer, Disposition: Transfer to [facility], Condition: Guarded. (15:12 MBRI) Patient left the department. (16:16 LGIB) PRESCRIPTION No recorded prescriptions IMAGING *EKG: Image captured from scanner. (14:48 LGIB) PHYSICIAN CERTIFICATION STATEMENT: Image captured from scanner. (15:17 LGIB) *MEMORANDUM OF TRANSFER: Image captured from scanner. (15:17 LGIB) CONSENTS: Image captured from scanner. (15:17 LGIB) *SUPPLY CHARGE SHEET: Image captured from scanner. (16:16 LGIB) RESULTS LABORATORY: Drug Screen, Blood Collection DT: SunOct 06, 2016 14:28, *Acetaminophen Less than 3.0 - L mcg/mL, Range (10.0-30.0), Therapeutic Range: 10.0 - 30.0 ug/mL &a-1R&a+25V*p+0X*t8138Z*c202B*c15G*c2P*p-0X&a-25V&a+1R Name: Tio Mensah : 1930 M85 MedRec: [id number] AcctNum: [id number] Prepared: SunOct 06, 2016 16:27 by Interface Page 14 of 18 pMD [facility] EMERGENCY RECORD Toxic Range: Possible, toxicity: 150 - 200 ug/mL Probable toxicity: Greater than 200, ug/mL *IMPORTANT TESTING INFORMATION* The half-life of NAC is 2, hours. The total NAC clearance is 5.6 hours for adults and 11 hours for, Newborns. Testing acetaminophen levels prior to a reasonable time frame, for clearance can cause falsely decreased acetaminophen levels. , Alcohol Less than 10 mg/dL, Range (Less than 10), The pharmacological response to blood alcohol levels may vary from, individual to individual. Negative: Less than 10, mg/dL Toxic: 50 - 100 mg/dL , Depression of C[employer] PU[employer] TENDER: Greater than 100 mg/dL , Fatalities reported: Greater than 400 mg/dL , *Salicylate Less than 5.0 - L mg/dL, Range (15.0-30.0). (14:50 MBRI) Cardiac Profile w/CKMB & TropI Collection DT: SunOct 06, 2016 14:28, CKMB 5.5 ng/mL, Range (0-6.6), Troponin I 0.027 ng/mL, Range (< 0.028), Reference Range , 0.00 - 0.028 ng/mL Negative 0.029 - 0.29 ng/mL , Indeterminate Greater or Equal to 0.3 ng/mL Strongly suggests [place] , . (14:50 MBRI) Lipase Collection DT: SunOct 06, 2016 14:28, Lipase 9 U/L, Range (8-78). (14:50 MBRI) CK (CPK) Collection DT: SunOct 06, 2016 14:28, *CK (CPK) 206 - H U/L, Range (30-200). (14:50 MBRI) Comprehensive Metabolic Panel Collection DT: SunOct 06, 2016 14:28, Sodium 142 mmol/L, Range (136-145), Potassium 3.6 mmol/L, Range (3.5-5.1), *Chloride 96 - L mmol/L, Range (98-107), *Carbon Dioxide 36 - H mmol/L, Range (23-31), Anion Gap 14 mmol/L, Range (10-20), BUN (Urea Nitrogen) 20 mg/dL, Range (8.4-25.7), Creatinine 1.08 mg/dL, Range (0.7-1.3), Estimated GFR-MDRD 65 , Reference Range for Estimated GFR: Greater than 90, mL/min/1.73 m2 NOTE: &a-1R&a+25V*p+0X*j9612E*c202B*c15G*c2P*p-0X&a-25V&a+1R Name: Tio Mensah : 1930 M85 MedRec: [id number] AcctNum: [id number] Prepared: SunOct 06, 2016 16:27 by Interface Page 15 of 18 pMD [facility] EMERGENCY RECORD The MDRD equation has not been validated for use, with the elderly (over 70 years of age), women, patients with, serious comorbid condition or persons with extremes of body size, muscle, mass, or nutritional status. , *Glucose 121 - H mg/dL, Range (83-110), Calcium 9.3 mg/dL, Range (7.8-10.44), Bilirubin, Total 1.1 mg/dL, Range (0.2-1.2), Protein, Total 7.8 g/dL, Range (5.8-8.1), NOTE: Plasma values are generally 0.3 to 0.5 g/dL higher than serum values, due to the presence of fibrinogen. , Albumin 4.3 g/dL, Range (3.4-4.8), Globulin 3.5 g/dL, Range (2.4-3.5), Alb/Glob Ratio 1.2 g/dL, Range (1.2-2.2), Alkaline Phosphatase 71 U/L, Range (40-150), AST (SGOT) 24 U/L, Range (5-34), ALT (SGPT) 20 U/L, Range (0-55). (14:50 MBRI) CBC with Differential Collection DT: SunOct 06, 2016 14:28, White Blood Cell (WBC) Count 7.7 thou/uL, Range (4.8-10.8), Red Blood Cell (RBC) Count 5.04 mill/uL, Range (4.70-6.10), Hemoglobin 15.2 g/dL, Range (14.0-18.0), Hematocrit 45.9 %, Range (42.0-52.0), Mean Corpuscular Volume 90.9 fl, Range (80.0-94.0), Mean Corpuscular Hemoglobin 30.1 pg, Range (27.0-31.0), Mean Corpuscular HGB CONC 33.1 g/dL, Range (32.0-36.0), RBC Distribution Width 12.6 %, Range (11.5-14.5), *Platelet Count 96 - L thou/uL, Range (130-400), HX OF LOW PLTS, Mean Platelet Volume 7.9 fL, Range (7.4-10.4), *%Neutrophils 79.8 - H %, Range (42.0-75.0), *%Lymphocytes 12.6 - L %, Range (21.0-51.0), %Monocytes 4.8 %, Range (0.0-10.0), %Eosinophils 1.8 %, Range (0.0-10.0), %Basophils 1.0 %, Range (0.0-1.0), #Neutrophils 6.2 thou/uL, Range (1.40-6.50), *#Lymphocytes 1.0 - L thou/uL, Range (1.20-3.40), #Monocytes 0.4 thou/uL, Range (0.11-0.59), #Eosinphils 0.1 thou/uL, Range (0.0-0.7), #Basophils 0.1 thou/uL, Range (0.0-0.2). (14:50 MBRI) Urinalysis w/ Rflx Microscopic Collection DT: SunOct 06, 2016 14:51, Color Yellow , Range (Yellow), Clarity Clear , Range (Clear), Specific [place], Urine 1.020 , Range (1.005-1.030), pH, Urine 6.0 , Range (5.0-9.0), Leukocyte Negative , Range (Negative), Nitrite Negative , Range (Negative), *Protein, Urine (Dipstick) 30 - H mg/dL, Range (Neg-Trace), Glucose, Urine (Dipstick) Negative mg/dL, Range (Negative), Ketone, Urine Negative mg/dL, Range (Negative), Urobilinogen 1.0 mg/dL, Range (0.2-1.0), Bilirubin Negative , Range (Negative), Blood, Urine Negative , Range (Negative). (14:52 MBRI) &a-1R&a+25V*p+0X*i6993O*c202B*c15G*c2P*p-0X&a-25V&a+1R Name: Tio Mensah : 1930 M85 MedRec: [id number] AcctNum: [id number] Prepared: SunOct 06, 2016 16:27 by Interface Page 16 of 18 pMD [facility] EMERGENCY RECORD [place] Collection DT: SunOct 06, 2016 14:53, [place] 108 mg/dL, Range (70-110). (14:58 MBRI) Drug Screen, Urine Collection DT: SunOct 06, 2016 14:51, THC/Cannabinoid Screen Not Detected , Range (NotDetected), Phencyclidine (PCP) Not Detected , Range (NotDetected), Cocaine Metabolite Screen Not Detected , Range (NotDetected), Methamphetamine Not Detected , Range (NotDetected), Opiate Screen Not Detected , Range (NotDetected), Amphetamine Not Detected , Range (NotDetected), Benzodiazepine Screen Not Detected , Range (NotDetected), Tricyclic Screen Not Detected , Range (NotDetected), Methadone Not Detected , Range (NotDetected), Barbiturates Screen Not Detected , Range (NotDetected), Oxycodone Screen Not Detected , Range (NotDetected), Propoxyphene Screen Not Detected , Range (NotDetected), Drug Screen Cutoff , Range (), The [employer] Profile-V Panel for Qualitative Drugs of Abuse assays are for, presumptive screening testing only. The drug class and detection limits, are as follows: Drug Class Detection Limit Amphetamine , 500 ng/mL* Barbiturates 200 ng/mL , Benzodiazepines 150 ng/mL* Cocaine 150 ng/mL*, Methamphetamine 500 ng/mL* Methadone 200, ng/mL* Opiates 100 ng/mL* Oxycodone , 100 ng/mL PCP 25 ng/mL Propoxyphene , 300 ng/mL Tricyclic Antidepressants 300 ng/mL Cannabinoids (THC) , 50 ng/mL Tests which yield a presumptive positive result must be , tested using a more specific alternate chemical method in order to obtain, a confirmed analytical result. Additional confirmation and identification, may be ordered on a routine basis, if desired. Presumptive positive urines, are held for two weeks. . (15:18 LGIB) Urine Microscopic Collection DT: SunOct 06, 2016 14:51, RBC/HPF 0-3 HPF, Range (0-3), WBC/HPF None Seen HPF, Range (0-3), Squamous Epithelial 0-3 HPF, Range (0-3), Transitional Epithelial 0-3 HPF, Range (0-3), Bacteria/HPF Rare-Few HPF, Range (None Seen). (15:18 LGIB) Urinalysis w/ Rflx Microscopic Collection DT: SunOct 06, 2016 14:51, Color Yellow , Range (Yellow), Clarity Clear , Range (Clear), &a-1R&a+25V*p+0X*m7441C*c202B*c15G*c2P*p-0X&a-25V&a+1R Name: Tio Mensah : 1930 M85 MedRec: [id number] AcctNum: [id number] Prepared: SunOct 06, 2016 16:27 by Interface Page 17 of 18 pMD [facility] EMERGENCY RECORD Specific [place], Urine 1.020 , Range (1.005-1.030), pH, Urine 6.0 , Range (5.0-9.0), Leukocyte Negative , Range (Negative), Nitrite Negative , Range (Negative), *Protein, Urine (Dipstick) 30 - H mg/dL, Range (Neg-Trace), Glucose, Urine (Dipstick) Negative mg/dL, Range (Negative), Ketone, Urine Negative mg/dL, Range (Negative), Urobilinogen 1.0 mg/dL, Range (0.2-1.0), Bilirubin Negative , Range (Negative), Blood, Urine Negative , Range (Negative). (15:18 LGIB) Ferrell: ERUI=LEOBARDO St, Queenie LGIB=LEOBARDO Alexander, Katelyn MBRI=DO Hawkins Matthew &a-1R&a+25V*p+0X*g8261X*c202B*c15G*c2P*p-0X&a-25V&a+1R Name: Tio Mensah : 1930 M85 MedRec: [id number] AcctNum: [id number] Prepared: SunOct 06, 2016 16:27 by Interface Page 18 of 18 pMD PRAVEEND
--- NOTE | 2016-10-06 22:05 | CT ---
CT OF THE BRAIN WITHOUT CONTRAST 10/06/[address] was compared with a prior MRI of the brain dated 09/16/11. There is considerable motion artifact on the lower images which partially obscures some areas. Encep halomalacia from an old left occipital stroke is noted. Elsewhere there is patchy deep white matter lucency consistent with chronic ischemic changes. There were no findings strongly suggestive of acu te stroke. No intracranial bleeding, mass or edema was seen. Mild atrophy is present with mild compe nsatory dilatation of the ventricles. 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 No acute intracranial findings. POS: HOME
--- NOTE | 2016-10-06 22:08 | RAD ---
PORTABLE CHEST 10/06/16 An AP portable film at 1455 is compared with an 04/11/16 study. The heart is borderline in size but there are no congestive changes or large pleural effusions. Ther e may be some very minor blunting of the right costophrenic angle. There is no vascular congestion. Haziness along the left lateral hemithorax is thought to be due to overlying soft tissues rather hamilton n pleural base change and partially due to the patient being rotated. If he should continue to have chest symptoms, an upright PA film if possible could be helpful. IMPRESSION: No definite acute findings. POS: HOME
== END 2016-10-06 16:11 | disposition home or self-care (01) ==
LOC: BURERS 13:58
DX: E86.0 Dehydration (principal); I10 Essential (primary) hypertension; J44.9 Chronic obstructive pulmonary disease, unspecified; Z79.899 Other long term (current) drug therapy
CPT/HCPCS: 36416; 51701; 70450; 71010; 80053; 80306; 80307; 81003; 81015; 82553; 83690; 84484; 85025; 87040; 87086; 93005; 94760; 96361; 96374; 36415-59; J2310

== ENCOUNTER 2016-11-07 09:48 | Outpatient (CLI) | payer MEDICARE, MEDICAID ==
[2016-11-07 11:05] LABS: #Eosinphils 0.2 thou/uL (0.0-0.7); #Lymphocytes 0.8 thou/uL (1.20-3.40); #Monocytes 0.4 thou/uL (0.11-0.59); #Neutrophils 4.9 thou/uL (1.40-6.50); %Basophils 0.5 % (0.0-1.0); %Eosinophils 3.7 % (0.0-10.0); %Monocytes 6.6 % (0.0-10.0); Hematocrit 40.7 % (42.0-52.0); Mean Platelet Volume 6.1 fL (7.4-10.4); White Blood Cell (WBC) Count 6.5 thou/uL (4.8-10.8)
[2016-11-07 11:57] LABS: ALT (SGPT) 20 U/L (0-55); AST (SGOT) 25 U/L (5-34); Alkaline Phosphatase 80 U/L (40-150); Anion Gap 13 mmol/L (10-20); BUN (Urea Nitrogen) 20 mg/dL (8.4-25.7); Bilirubin, Total 1.1 mg/dL (0.2-1.2); Calc. Creatinine Clearance 0 mL/min (70-130); Calcium 8.8 mg/dL (7.8-10.44); Carbon Dioxide 33 mmol/L (23-31); Chloride 103 mmol/L (98-107); Estimated GFR-MDRD 61; Globulin 2.9 g/dL (2.4-3.5); LDL Cholesterol, Calculated 58 mg/dL; Protein, Total 6.7 g/dL (5.8-8.1)
== END 2016-11-07 09:49 | disposition home or self-care (01) ==
LOC: HPCALD 09:48
PROVIDERS: ATTEND Family Medicine
DX: I10 Essential (primary) hypertension (principal)
CPT/HCPCS: 36415; 80053; 80061; 85025

== ENCOUNTER 2016-11-28 12:06 | Emergency (ER) | payer MEDICARE, MEDICAID ==
[2016-11-28] MEDS ORDERED: Magnesium Sulfate 2 GM/100 ML BAG ONE (12:28)
[2016-11-28] MEDS ORDERED: Albuterol Sulfate 1.25 MG/3 ML NEB ONE (12:43)
[2016-11-28 13:04] LABS: #Eosinphils 0.3 thou/uL (0.0-0.7); #Lymphocytes 1.3 thou/uL (1.20-3.40); #Monocytes 0.4 thou/uL (0.11-0.59); #Neutrophils 3.6 thou/uL (1.40-6.50); %Basophils 0.8 % (0.0-1.0); %Eosinophils 5.7 % (0.0-10.0); %Lymphocytes 22.6 % (21.0-51.0); %Monocytes 7.2 % (0.0-10.0); %Neutrophils 63.8 % (42.0-75.0); Hemoglobin 13.8 g/dL (14.0-18.0); Mean Corpuscular HGB CONC 32.7 g/dL (32.0-36.0); Mean Corpuscular Hemoglobin 29.9 pg (27.0-31.0); Mean Corpuscular Volume 91.7 fl (80.0-94.0); Mean Platelet Volume 6.3 fL (7.4-10.4); Platelet Count 114 thou/uL (130-400); RBC Distribution Width 12.9 % (11.5-14.5); Red Blood Cell (RBC) Count 4.62 mill/uL (4.70-6.10); White Blood Cell (WBC) Count 5.6 thou/uL (4.8-10.8)
[2016-11-28 13:07] LABS: ALT (SGPT) 20 U/L (0-55); AST (SGOT) 27 U/L (5-34); Albumin 4.1 g/dL (3.4-4.8); Alkaline Phosphatase 103 U/L (40-150); Anion Gap 14 mmol/L (10-20); BUN (Urea Nitrogen) 18 mg/dL (8.4-25.7); Bilirubin, Total 1.1 mg/dL (0.2-1.2); Calc. Creatinine Clearance 0 mL/min (70-130); Carbon Dioxide 34 mmol/L (23-31); Chloride 97 mmol/L (98-107); Estimated GFR-MDRD 63; Globulin 3.4 g/dL (2.4-3.5); Glucose 84 mg/dL (83-110); Potassium 3.8 mmol/L (3.5-5.1); Protein, Total 7.5 g/dL (5.8-8.1); Sodium 141 mmol/L (136-145)
[2016-11-28 13:09] LABS: CKMB 2.8 ng/mL (0-6.6); Troponin I 0.011 ng/mL (< 0.028)
[2016-11-28] MEDS ORDERED: methylPREDNISolone Sod Succ/PF 125 MG/2 ML VIAL ONE (13:26)
[2016-11-28 13:27] LABS: Bacteria/HPF None Seen HPF (None Seen); Bilirubin Negative (Negative); Blood, Urine Trace (Negative); Clarity Clear (Clear); Crystals/HPF None Seen HPF (Negative); Glucose, Urine (Dipstick) Negative (Negative); Hyaline Casts/LPF NONE SEEN LPF (0-3 Hyaline); Leukocyte Negative (Negative); Nitrite Negative (Negative); Other Casts/LPF None Seen LPF (0-3 Hyaline); Oval Fat Bodies/HPF None Seen HPF (None Seen); Protein, Urine (Dipstick) Negative (Neg-Trace); RBC/HPF 0-3 HPF (0-3); Renal Epithelial None Seen HPF (0-3); Sperm/HPF None Seen HPF (None Seen); Squamous Epithelial None Seen HPF (0-3); Transitional Epithelial NONE SEEN HPF (0-3); Trichomonas/HPF None Seen HPF (None Seen); Urobilinogen 0.2 mg/dL (0.2-1.0); WBC/HPF None Seen HPF (0-3); Yeast-All Forms None Seen HPF (None Seen); pH, Urine 6.5 (5.0-9.0)
[2016-11-28] MEDS ORDERED: Azithromycin 250 MG TAB ONE (13:42)
--- NOTE | 2016-11-28 17:12 | RAD ---
PORTABLE CHEST 11/28/16 Comparison is made with the 10/08/16 study. The heart is unchanged in size. There are no congestive changes or large pleural effusions. While th ere is no major lobar infiltrate, it is hazier along the right hemidiaphragm medially than it was la st month. An early infiltrate here is suspected. Further followup is in order. IMPRESSION: Possible right lower lobe infiltrate. Code T POS: HOME
== END 2016-11-28 14:04 | disposition home or self-care (01) ==
LOC: BURERS 12:06
DX: J44.1 Chronic obstructive pulmonary disease with (acute) exacerbation (principal); I10 Essential (primary) hypertension; Z79.899 Other long term (current) drug therapy; Z87.891 Personal history of nicotine dependence
CPT/HCPCS: 36415; 71010; 80053; 81003; 81015; 82553; 83605; 83880; 84484; 85025; 87040; 87070; 87086; 87205; 93005; 94640; 94760; 96365; 96375; J2930; J3475; J7620

== ENCOUNTER 2017-01-26 13:22 | Emergency (ER) | payer MEDICARE, MEDICAID | END 2017-01-26 14:14 | disposition home or self-care (01) | LOC: BURERS 13:22 | DX: H92.22 Otorrhagia, left ear (principal); M79.81 Nontraumatic hematoma of soft tissue; I10 Essential (primary) hypertension; J44.9 Chronic obstructive pulmonary disease, unspecified; Z87.891 Personal history of nicotine dependence | CPT/HCPCS: 99282 ==

== ENCOUNTER 2017-04-05 10:08 | Emergency (ER) | payer MEDICARE, MEDICAID | END 2017-04-05 11:04 | disposition home or self-care (01) | LOC: BURERS 10:08 | DX: S00.411A Abrasion of right ear, initial encounter (principal); E11.9 Type 2 diabetes mellitus without complications; E78.5 Hyperlipidemia, unspecified; I10 Essential (primary) hypertension; J44.9 Chronic obstructive pulmonary disease, unspecified; F32.9 Major depressive disorder, single episode, unspecified; Z87.891 Personal history of nicotine dependence; Z79.899 Other long term (current) drug therapy; Z79.84 Long term (current) use of oral hypoglycemic drugs; X58.XXXA Exposure to other specified factors, initial encounter | CPT/HCPCS: 99282 ==

== ENCOUNTER 2017-05-04 11:51 | Outpatient (CLI) | payer MEDICARE, MEDICAID ==
[2017-05-04 13:04] LABS: ALT (SGPT) 28 U/L (8-55); AST (SGOT) 26 U/L (5-34); Albumin 3.9 g/dL (3.4-4.8); Alkaline Phosphatase 78 U/L (40-150); Anion Gap 11 mmol/L (10-20); BUN (Urea Nitrogen) 13 mg/dL (8.4-25.7); Bilirubin, Total 0.8 mg/dL (0.2-1.2); Calc. Creatinine Clearance 0 mL/min (70-130); Calcium 8.8 mg/dL (7.8-10.44); Carbon Dioxide 36 mmol/L (23-31); Chloride 99 mmol/L (98-107); Estimated GFR-MDRD 57; Glucose 82 mg/dL (83-110); Potassium 4.6 mmol/L (3.5-5.1); Protein, Total 6.9 g/dL (5.8-8.1); Sodium 141 mmol/L (136-145)
[2017-05-04 13:10] LABS: Hemoglobin A1c 5.8 % (4.0-6.0)
[2017-05-04 14:09] LABS: #Eosinphils 0.2 thou/uL (0.0-0.7); #Lymphocytes 1.3 thou/uL (1.20-3.40); #Monocytes 0.5 thou/uL (0.11-0.59); %Basophils 0.6 % (0.0-1.0); %Eosinophils 3.7 % (0.0-10.0); %Lymphocytes 21.4 % (21.0-51.0); %Monocytes 7.8 % (0.0-10.0); %Neutrophils 66.5 % (42.0-75.0); Hemoglobin 13.9 g/dL (14.0-18.0); Mean Corpuscular HGB CONC 32.5 g/dL (32.0-36.0); Mean Corpuscular Volume 92.3 fl (80.0-94.0); Platelet Count 42 thou/uL (130-400); RBC Distribution Width 12.9 % (11.5-14.5); Red Blood Cell (RBC) Count 4.63 mill/uL (4.70-6.10)
[2017-05-04 14:35] LABS: MDiff Complete? YES; Manual Diff?? NO
== END 2017-05-04 11:52 | disposition home or self-care (01) ==
LOC: HPCALD 11:51
PROVIDERS: ATTEND Family Medicine
DX: E11.9 Type 2 diabetes mellitus without complications (principal); I10 Essential (primary) hypertension
CPT/HCPCS: 36415; 80053; 83036; 85025

== ENCOUNTER 2017-06-30 07:52 | Emergency (ER) | payer MEDICARE, MEDICAID ==
[2017-06-30] MEDS ORDERED: Albuterol Sulfate 2.5 mg/3 ml Neb ONE (08:34)
[2017-06-30 08:37] LABS: #Basophils 0.1 thou/uL (0.0-0.2); #Eosinphils 0.2 thou/uL (0.0-0.7); #Lymphocytes 0.7 thou/uL (1.20-3.40); #Monocytes 0.4 thou/uL (0.11-0.59); #Neutrophils 5.3 thou/uL (1.40-6.50); %Basophils 1.2 % (0.0-1.0); %Eosinophils 2.4 % (0.0-10.0); %Lymphocytes 10.7 % (21.0-51.0); %Monocytes 5.3 % (0.0-10.0); %Neutrophils 80.4 % (42.0-75.0); Mean Corpuscular HGB CONC 32.8 g/dL (32.0-36.0); Mean Corpuscular Hemoglobin 30.8 pg (27.0-31.0); Mean Corpuscular Volume 93.9 fl (80.0-94.0); Mean Platelet Volume 7.6 fL (7.4-10.4); Platelet Count 50 thou/uL (130-400); RBC Distribution Width 12.6 % (11.5-14.5); Red Blood Cell (RBC) Count 4.86 mill/uL (4.70-6.10); White Blood Cell (WBC) Count 6.6 thou/uL (4.8-10.8)
[2017-06-30 08:38] LABS: Troponin I 0.011 ng/mL (< 0.028)
[2017-06-30 08:39] LABS: ALT (SGPT) 18 U/L (8-55); AST (SGOT) 28 U/L (5-34); Alkaline Phosphatase 91 U/L (40-150); Anion Gap 16 mmol/L (10-20); BUN (Urea Nitrogen) 12 mg/dL (8.4-25.7); Calc. Creatinine Clearance 0 mL/min (70-130); Calcium 9.2 mg/dL (7.8-10.44); Carbon Dioxide 35 mmol/L (23-31); Chloride 94 mmol/L (98-107); Estimated GFR-MDRD 68; Globulin 3.7 g/dL (2.4-3.5); Glucose 114 mg/dL (83-110); Potassium 4.2 mmol/L (3.5-5.1); Protein, Total 7.7 g/dL (5.8-8.1); Sodium 141 mmol/L (136-145)
[2017-06-30] MEDS ORDERED: methylPREDNISolone Sod Succ/PF 125 MG/2 ML VIAL ONE (08:39)
[2017-06-30 08:40] LABS: PLT Morphology Comment Appears Decreased
[2017-06-30] MEDS ORDERED: Furosemide 40 MG/4 ML VIAL ONE (08:44)
[2017-06-30 08:46] LABS: CKMB 9.5 ng/mL (0-6.6)
[2017-06-30 08:47] LABS: Critical Call CKMBM 0
[2017-06-30] MEDS ORDERED: Sodium Chloride 0.9% 100 ML ONE (09:07)
[2017-06-30] MEDS ORDERED: cefTRIAXone\\ROCEPHIN 2 GM VIAL ONE (09:07)
[2017-06-30 09:43] LABS: Bilirubin Negative (Negative); Blood, Urine Trace (Negative); Clarity Clear (Clear); Glucose, Urine (Dipstick) Negative (Negative); Leukocyte Negative (Negative); Nitrite Negative (Negative); Protein, Urine (Dipstick) Negative (Neg-Trace); Specific Gravity, Urine 1.015 (1.005-1.030); Urobilinogen 0.2 mg/dL (0.2-1.0)
--- NOTE | 2017-06-30 09:43 | RAD ---
PORTABLE CHEST: Date: 06/30/17 An AP portable film at 0804 hours is compared with the 11/28/16 study. FINDINGS: The right basilar infiltrate seen previously has largely resolved. There is a little haziness along the medial section of the right hemidiaphragm, but this is probably just residual. I cannot confirm an acute infiltrate here. Some minor blunting of the right costophrenic angle also seems similar to before, thus I am not convinced that there is a small effusion at the moment. The left lung is clear . The heart is normal in size. There are no signs of vascular congestion or edema. IMPRESSION: Chronic changes but no definite acute findings. If symptoms persist,short term follow up imaging may be helpful for a second look at the right base. POS: HOME
[2017-06-30 09:48] LABS: Bacteria/HPF Rare-Few HPF (None Seen); RBC/HPF 0-3 HPF (0-3); Squamous Epithelial 0-3 HPF (0-3); WBC/HPF 0-3 HPF (0-3)
== END 2017-06-30 09:32 | disposition short-term general hospital (02) ==
LOC: BURERS 07:52
DX: J44.1 Chronic obstructive pulmonary disease with (acute) exacerbation (principal); E78.5 Hyperlipidemia, unspecified; I10 Essential (primary) hypertension; I50.9 Heart failure, unspecified; F32.9 Major depressive disorder, single episode, unspecified; Z79.899 Other long term (current) drug therapy
CPT/HCPCS: 36416; 71010; 80053; 81003; 81015; 82553; 83880; 84484; 85025; 87040; 87086; 93005; 94640; 94760; 96365; 96375; J0696; J1940; J2930; J7050; J7611; J7620

== ENCOUNTER 2017-08-15 10:03 | Emergency (ER) | payer MEDICARE, MEDICAID ==
[2017-08-15 10:36] LABS: pH (venous) 7.35 (7.35-7.45)
[2017-08-15 10:37] LABS: Base Excess 6.8 mEq/L (-2 - +2); Hemoglobin (Hb) 14.6 g/dL (12.6-17.4)
[2017-08-15 10:50] LABS: #Basophils 0.1 thou/uL (0.0-0.2); #Eosinphils 0.1 thou/uL (0.0-0.7); #Lymphocytes 0.8 thou/uL (1.20-3.40); #Monocytes 0.4 thou/uL (0.11-0.59); #Neutrophils 5.6 thou/uL (1.40-6.50); %Basophils 0.8 % (0.0-1.0); %Lymphocytes 10.8 % (21.0-51.0); %Monocytes 5.1 % (0.0-10.0); %Neutrophils 81.3 % (42.0-75.0); Hemoglobin 13.8 g/dL (14.0-18.0); Mean Corpuscular Hemoglobin 30.3 pg (27.0-31.0); Mean Corpuscular Volume 91.8 fl (80.0-94.0); Mean Platelet Volume 6.5 fL (7.4-10.4); Platelet Count 48 thou/uL (130-400); RBC Distribution Width 13.4 % (11.5-14.5); Red Blood Cell (RBC) Count 4.55 mill/uL (4.70-6.10); White Blood Cell (WBC) Count 6.9 thou/uL (4.8-10.8)
[2017-08-15 10:54] LABS: CKMB 5.9 ng/mL (0-6.6); Troponin I 0.031 ng/mL (< 0.028)
[2017-08-15] MEDS ORDERED: methylPREDNISolone Sod Succ/PF 125 MG/2 ML VIAL ONE (10:54)
[2017-08-15 10:56] LABS: ALT (SGPT) 22 U/L (8-55); AST (SGOT) 35 U/L (5-34); Albumin 3.9 g/dL (3.4-4.8); Alkaline Phosphatase 83 U/L (40-150); Anion Gap 16 mmol/L (10-20); BUN (Urea Nitrogen) 12 mg/dL (8.4-25.7); Calc. Creatinine Clearance 0 mL/min (70-130); Calcium 9.1 mg/dL (7.8-10.44); Carbon Dioxide 31 mmol/L (23-31); Chloride 100 mmol/L (98-107); Estimated GFR-MDRD 65; Globulin 3.5 g/dL (2.4-3.5); Glucose 145 mg/dL (83-110); Potassium 3.9 mmol/L (3.5-5.1); Protein, Total 7.4 g/dL (5.8-8.1); Sodium 143 mmol/L (136-145)
[2017-08-15] MEDS ORDERED: Bacitracin Zinc 1 Packet ONE (11:28)
[2017-08-15 13:48] LABS: Troponin I 0.025 ng/mL (< 0.028)
--- NOTE | 2017-08-15 21:01 | RAD ---
PORTABLE CHEST 08/15/17 An AP portable film at 1020 is compared with a prior study dated 06/30/17. The upper lobe vessels seem slightly more prominent today than they were before. The possibility of some very mild congestion is raised. Haziness throughout the lungs is probably in part due to fibrosi s and seems a little different than before. No lobar co nsolidation, or large effusions seen. Mild cardiomegaly is about the same as previously. Arterioscler otic changes seen in the aorta. IMPRESSION: Suspicion of mild congestive change. POS: HOME
== END 2017-08-15 14:10 | disposition home or self-care (01) ==
LOC: BURERS 10:03
DX: J44.1 Chronic obstructive pulmonary disease with (acute) exacerbation (principal); E78.5 Hyperlipidemia, unspecified; I10 Essential (primary) hypertension; F32.9 Major depressive disorder, single episode, unspecified; Z87.891 Personal history of nicotine dependence
CPT/HCPCS: 71010; 80053; 82553; 82805; 83880; 84484; 85025; 93005; 96374; J2930; J7620

== ENCOUNTER 2017-11-10 13:59 | Emergency (ER) | payer MEDICARE, MEDICAID ==
[2017-11-10] MEDS ORDERED: Albuterol Sulfate 2.5 mg/3 ml Neb ONE (14:13)
[2017-11-10] MEDS ORDERED: methylPREDNISolone Sod Succ/PF 125 MG/2 ML VIAL ONE (14:23)
[2017-11-10] MEDS ORDERED: Magnesium Sulfate 2 GM/100 ML BAG ONE (14:23)
[2017-11-10] MEDS ORDERED: Amlodipine 5 MG TAB ONE (14:45)
[2017-11-10] MEDS ORDERED: Furosemide 40 MG TAB ONE (14:45)
[2017-11-10] MEDS ORDERED: Albuterol Sulfate 1.25 MG/3 ML NEB ONE ×2 (14:59→15:08)
[2017-11-10 15:03] LABS: #Eosinphils 0.1 thou/uL (0.0-0.7); #Lymphocytes 1.1 thou/uL (1.20-3.40); #Monocytes 0.5 thou/uL (0.11-0.59); #Neutrophils 5.6 thou/uL (1.40-6.50); %Basophils 0.5 % (0.0-1.0); %Lymphocytes 14.8 % (21.0-51.0); %Monocytes 7.1 % (0.0-10.0); %Neutrophils 75.6 % (42.0-75.0); Band 1 % (5-11); Eosinophils 2 % (0-10); Hemoglobin 13.3 g/dL (14.0-18.0); Lymphocytes 16 % (21-51); MDiff Complete? YES; Mean Corpuscular HGB CONC 33.5 g/dL (32.0-36.0); Mean Corpuscular Hemoglobin 30.4 pg (27.0-31.0); Mean Corpuscular Volume 90.8 fl (80.0-94.0); Mean Platelet Volume 7.1 fL (7.4-10.4); Monocytes 7 % (0-10); Neutrophil 74 % (42-75); Platelet Count 114 thou/uL (130-400); RBC Distribution Width 13.9 % (11.5-14.5); Red Blood Cell (RBC) Count 4.37 mill/uL (4.70-6.10); White Blood Cell (WBC) Count 7.4 thou/uL (4.8-10.8)
[2017-11-10 15:04] LABS: ALT (SGPT) 18 U/L (8-55); AST (SGOT) 16 U/L (5-34); Albumin 3.5 g/dL (3.4-4.8); Alkaline Phosphatase 73 U/L (40-150); Anion Gap 13 mmol/L (10-20); BUN (Urea Nitrogen) 22 mg/dL (8.4-25.7); Bilirubin, Total 0.9 mg/dL (0.2-1.2); Calc. Creatinine Clearance 0 mL/min (70-130); Calcium 9.1 mg/dL (7.8-10.44); Carbon Dioxide 35 mmol/L (23-31); Chloride 98 mmol/L (98-107); Estimated GFR-MDRD 68; Globulin 2.8 g/dL (2.4-3.5); Glucose 97 mg/dL (83-110); Potassium 4.5 mmol/L (3.5-5.1); Protein, Total 6.3 g/dL (5.8-8.1); Sodium 141 mmol/L (136-145)
[2017-11-10 15:06] LABS: CKMB 3.4 ng/mL (0-6.6); Troponin I 0.022 ng/mL (< 0.028)
--- NOTE | 2017-11-10 15:45 | RAD ---
PORTABLE CHEST 11/10/17 PROVIDED CLINICAL HISTORY: Dyspnea. FINDINGS: Comparison made with the study dated 08/22/17. Cardiac and mediastinal silhouette is not changed in appearance. Vascular calcification involves the aortic arch. Chronic obstructive changes are seen. No focal consolidation, pleural fluid or pneumotho rax apparent with limitations due to exclusion of the right costophrenic angle. IMPRESSION: No evidence for an acute cardiopulmonary process. POS: PRASHANTH
== END 2017-11-10 17:48 | disposition short-term general hospital (02) ==
LOC: BURERS 13:59
DX: J44.1 Chronic obstructive pulmonary disease with (acute) exacerbation (principal); R09.02 Hypoxemia; E78.5 Hyperlipidemia, unspecified; I10 Essential (primary) hypertension; F32.9 Major depressive disorder, single episode, unspecified; Z87.891 Personal history of nicotine dependence; Z79.899 Other long term (current) drug therapy
CPT/HCPCS: 71045; 80053; 82553; 83880; 84484; 85025; 93005; 94640; 94660; 94760; 96361; 96365; 96367; 96375; J1956; J2930; J3475; J7611; J7620

== ENCOUNTER 2018-08-17 19:22 | Emergency (ER) | payer MEDICARE, OTHER | END 2018-08-17 20:15 | disposition home or self-care (01) | LOC: BURERS 19:22 | DX: S61.302A Unspecified open wound of right middle finger with damage to nail, initial encounter (principal); G30.9 Alzheimer's disease, unspecified; F02.80 Dementia in other diseases classified elsewhere, unspecified severity, without behavioral disturbance, psychotic disturbance, mood disturbance, and anxiety; E78.5 Hyperlipidemia, unspecified; I10 Essential (primary) hypertension; J44.9 Chronic obstructive pulmonary disease, unspecified; Z87.891 Personal history of nicotine dependence; Z79.899 Other long term (current) drug therapy; W01.0XXA Fall on same level from slipping, tripping and stumbling without subsequent striking against object, initial encounter | CPT/HCPCS: 94640; J7620 ==